=== PATIENT | female | born 1975 | race African-American/Black ===

== ENCOUNTER 2020-05-25 02:48 | Inpatient (IN) | payer MEDICARE, MEDICAID ==
[~2020-05-25] VITALS: Ht 162.6 cm; Wt 99.8 kg
[2020-05-25] MEDS ORDERED: ONDANSETRON HCL 4MG/2ML INJ IV STA (03:03)
[2020-05-25] MEDS ORDERED: MORPHINE SULFATE 4 MG/ML CPJ (NOT FOR IM USE) IV STA (03:03)
[2020-05-25 03:27] LABS: BASOPHILS % 0.6 % (0.0-2.0); EOSINOPHILS % 3.6 % (0.0-5.0); HEMATOCRIT. 34.5 % (36.0-48.0); HEMOGLOBIN. 11.1 g/dL (12.0-16.0); MEAN CORPUSCULAR HEMOGLOBIN 27.6 pg (28.0-32.0); MEAN PLATELET VOLUME 7.2 fl (7.4-10.4); MONOCYTES % 7.6 % (2.0-8.0); NEUTROPHILS % 78.2 % (40.0-76.0); PLATELET 334 x1000/uL (130-400); RED BLOOD CELL COUNT 4.01 mill/uL (4.2-5.4); RED CELL DISTRIBUTION WIDTH 16.8 % (11.6-14.6)
[2020-05-25 03:29] LABS: CHLORIDE 92 mEq/L (98-107)
[2020-05-25] MEDS ORDERED: DIPHENHYDRAMINE 50MG/ML VIAL IV ONE (04:15)
[2020-05-25] MEDS ORDERED: MORPHINE SULFATE 2 MG/ML CPJ (NOT FOR IM USE) IV PRN (09:00)
[2020-05-25 12:00] VITALS: BP 121/70
[2020-05-25] MEDS ORDERED: HYDRALAZINE 20MG/ML VIAL IV PRN (12:15)
[2020-05-25] MEDS ORDERED: CLONIDINE 0.1MG TABLET PO PRN (12:15)
[2020-05-25] MEDS ORDERED: MAGNESIUM/ALUMINUM HYDROXIDE/SIMETHICONE 30ML UDC PO PRN (12:15)
[2020-05-25] MEDS ORDERED: DEXTROSE 50% WATER 50ML SYRINGE IV PRN (12:15)
[2020-05-25] MEDS ORDERED: GUAIFENESIN 200MG/10ML SUGAR FREE UDC PO PRN (12:15)
[2020-05-25] MEDS ORDERED: IPRATROPIUM/ALBUTEROL 0.5-3(2.5)MG/3ML NEB NEB PRN (12:15)
[2020-05-25] MEDS ORDERED: ONDANSETRON HCL 4MG/2ML INJ IV PRN (12:15)
[2020-05-25] MEDS ORDERED: DOCUSATE SODIUM 100MG CAPSULE PO PRN (12:15)
[2020-05-25] MEDS ORDERED: ACETAMINOPHEN 325MG TABLET PO PRN (12:15)
[2020-05-25] MEDS: INSULIN LISPRO 100 UNITS/ML SUBCUT SCH ×4 (12:40→20:18)
[2020-05-25] MEDS: ENOXAPARIN 40MG/0.4ML SYR SUBCUT SCH ×2 (13:00→13:20)
[2020-05-25] MEDS ORDERED: METO-396 MT (13:09)
[2020-05-25] MEDS ORDERED: PROT20 MT (13:11)
[2020-05-25] MEDS ORDERED: FOLI0.8T42 MT (13:11)
[2020-05-25] MEDS ORDERED: CLOP-31 MT (13:11)
[2020-05-25] MEDS ORDERED: ASPI-1497 MT (13:11)
[2020-05-25] MEDS ORDERED: HYDR4TAB4 MT (13:12)
[2020-05-25] MEDS ORDERED: B50 MT (13:12)
[2020-05-25] MEDS ORDERED: CALC667T6 MT (13:13)
[2020-05-25] MEDS: DIPHENHYDRAMINE 50MG/ML VIAL IV PRN ×2 (13:20→20:18)
[2020-05-25] MEDS: SODIUM CHLORIDE 0.9% INJ 3ML FLUSH IVF SCH ×2 (13:21→20:26)
[2020-05-25] MEDS: LISINOPRIL 2.5MG TABLET PO SCH (13:45)
[2020-05-25] MEDS: HYDROMORPHONE HCL/PF 2MG/ML CPJ IV PRN ×2 (14:11→20:27)
[2020-05-25] MEDS: LORAZEPAM 2MG/ML CPJ IV PRN (16:48)
[2020-05-25] MEDS: BLOOD SUGAR DIAGNOSTIC STRIP TEST SCH ×2 (17:10→20:26)
[2020-05-25 20:00] VITALS: BP 134/76
[2020-05-25] MEDS: CARVEDILOL 3.125 MG TABLET PO SCH (20:19)
[2020-05-25] MEDS: ATORVASTATIN CALCIUM 10MG TABLET PO SCH (20:19)
[2020-05-26] VITALS: BP 139/85
[2020-05-26] MEDS: DIPHENHYDRAMINE 50MG/ML VIAL IV PRN ×4 (02:30→22:08)
[2020-05-26] MEDS: HYDROMORPHONE HCL/PF 2MG/ML CPJ IV PRN ×4 (02:30→22:08)
[2020-05-26 04:00] VITALS: BP 114/91
[2020-05-26] MEDS: LORAZEPAM 2MG/ML CPJ IV PRN ×3 (04:09→20:06)
[2020-05-26] MEDS: SODIUM CHLORIDE 0.9% INJ 3ML FLUSH IVF SCH ×3 (05:31→21:25)
[2020-05-26] MEDS: BLOOD SUGAR DIAGNOSTIC STRIP TEST SCH ×4 (07:20→21:25)
[2020-05-26] MEDS: INSULIN LISPRO 100 UNITS/ML SUBCUT SCH ×4 (07:20→21:20)
[2020-05-26 08:23] VITALS: BP 156/78
[2020-05-26] MEDS: ASPIRIN 81MG TABLET PO SCH (08:41)
[2020-05-26] MEDS: LISINOPRIL 2.5MG TABLET PO SCH (08:41)
[2020-05-26] MEDS: CARVEDILOL 3.125 MG TABLET PO SCH ×2 (08:43→21:19)
[2020-05-26 11:28] LABS: BASOPHILS % 0.6 % (0.0-2.0); EOSINOPHILS % 3.2 % (0.0-5.0); HEMATOCRIT. 33.1 % (36.0-48.0); HEMOGLOBIN. 10.6 g/dL (12.0-16.0); LYMPHOCYTES % 9.7 % (20.0-50.0); MEAN CORPUSCULAR HEMOGLOBIN 27.6 pg (28.0-32.0); MEAN CORPUSCULAR VOLUME 86.2 fL (81.0-99.0); MEAN PLATELET VOLUME 7.4 fl (7.4-10.4); MONOCYTES % 6.7 % (2.0-8.0); NEUTROPHILS % 79.8 % (40.0-76.0); PLATELET 361 x1000/uL (130-400); RED BLOOD CELL COUNT 3.84 mill/uL (4.2-5.4)
[2020-05-26 11:41] LABS: CHLORIDE 93 mEq/L (98-107)
[2020-05-26 11:47] LABS: LDL CHOLESTEROL 113 mg/dL (5-100)
[2020-05-26 11:49] LABS: CREATINE KINASE 81 IU/L (26-192); CREATINE KINASE MB FRACTION 2.6 ng/mL (0.5-3.6); HDL CHOLESTEROL 59 mg/dL (40-59)
[2020-05-26 12:14] VITALS: BP 120/45
[2020-05-26] MEDS: ENOXAPARIN 40MG/0.4ML SYR SUBCUT SCH (13:00)
[2020-05-26 16:26] VITALS: BP 142/82
[2020-05-26 20:00] VITALS: BP 152/126
[2020-05-26] MEDS: ATORVASTATIN CALCIUM 10MG TABLET PO SCH (21:19)
[2020-05-27] VITALS (7 sets, daily range): BP systolic 94–168; BP diastolic 47–131
[2020-05-27] MEDS: HYDROMORPHONE HCL/PF 2MG/ML CPJ IV PRN ×3 (04:15→17:28)
[2020-05-27] MEDS: DIPHENHYDRAMINE 50MG/ML VIAL IV PRN ×2 (04:16→11:23)
[2020-05-27] MEDS: LORAZEPAM 2MG/ML CPJ IV PRN ×3 (05:53→16:03)
[2020-05-27] MEDS: INSULIN LISPRO 100 UNITS/ML SUBCUT SCH ×3 (06:08→17:29)
[2020-05-27] MEDS: BLOOD SUGAR DIAGNOSTIC STRIP TEST SCH ×3 (06:09→17:27)
[2020-05-27] MEDS: SODIUM CHLORIDE 0.9% INJ 3ML FLUSH IVF SCH ×2 (06:09→13:23)
[2020-05-27 07:44] LABS: BASOPHILS % 0.5 % (0.0-2.0); EOSINOPHILS % 3.6 % (0.0-5.0); HEMATOCRIT. 31.1 % (36.0-48.0); HEMOGLOBIN. 10.1 g/dL (12.0-16.0); MEAN CORPUSCULAR VOLUME 85.8 fL (81.0-99.0); MEAN PLATELET VOLUME 7.7 fl (7.4-10.4); MONOCYTES % 8.5 % (2.0-8.0); NEUTROPHILS % 74.4 % (40.0-76.0); PLATELET 337 x1000/uL (130-400); RED BLOOD CELL COUNT 3.62 mill/uL (4.2-5.4); RED CELL DISTRIBUTION WIDTH 16.7 % (11.6-14.6)
[2020-05-27] MEDS: ASPIRIN 81MG TABLET PO SCH (08:45)
[2020-05-27] MEDS: CARVEDILOL 3.125 MG TABLET PO SCH (08:47)
[2020-05-27] MEDS: LISINOPRIL 2.5MG TABLET PO SCH (08:47)
[2020-05-27] MEDS: ENOXAPARIN 40MG/0.4ML SYR SUBCUT SCH ×2 (13:00→13:23)
== END 2020-05-27 19:35 | disposition home or self-care (01) | DRG 311 ==
LOC: ER 02:48 → 8WST 05:32
PROVIDERS: ADMIT Internal Medicine; ATTEND Internal Medicine
PROC: 5A1D70Z Performance of Urinary Filtration, Intermittent, Less than 6 Hours Per Day (ICD-10-PCS; principal; 2020-05-25)
DX: I24.8 Other forms of acute ischemic heart disease (principal); N18.6 End stage renal disease; I50.21 Acute systolic (congestive) heart failure; I13.2 Hypertensive heart and chronic kidney disease with heart failure and with stage 5 chronic kidney disease, or end stage renal disease; J84.9 Interstitial pulmonary disease, unspecified; J98.11 Atelectasis; D63.8 Anemia in other chronic diseases classified elsewhere; E11.22 Type 2 diabetes mellitus with diabetic chronic kidney disease; E11.319 Type 2 diabetes mellitus with unspecified diabetic retinopathy without macular edema; E11.51 Type 2 diabetes mellitus with diabetic peripheral angiopathy without gangrene; E78.5 Hyperlipidemia, unspecified; E87.5 Hyperkalemia; G89.4 Chronic pain syndrome; Z89.511 Acquired absence of right leg below knee; Z89.612 Acquired absence of left leg above knee; Z99.2 Dependence on renal dialysis; Z79.899 Other long term (current) drug therapy; H54.7 Unspecified visual loss
CPT/HCPCS: 36415; 71045; 80048; 80053; 80061; 82550; 82553; 82962; 83735; 83880; 84484; 85025; 93005; 93306; 99291; C1893; J1170; J1200; J1650; J1815; J2060; J2270; J2405

== ENCOUNTER 2020-06-16 23:51 | Inpatient (IN) | payer MEDICARE, MEDICAID ==
[~2020-06-16] VITALS: Ht 121.9 cm; Wt 93.2 kg
[~2020-06-16 23:51] MED LIST: ASPI-1497 MT; B50 MT; CALC667T6 MT; CLOP-31 MT; FOLI0.8T42 MT; HYDR4TAB4 MT; METO-396 MT; PROT20 MT
[2020-06-17] MEDS ORDERED: ONDANSETRON HCL 4MG/2ML INJ IV STA (00:54)
[2020-06-17] MEDS ORDERED: MORPHINE SULFATE 4 MG/ML CPJ (NOT FOR IM USE) IV STA (00:54)
[2020-06-17 01:12] LABS: CHLORIDE 94 mEq/L (98-107)
[2020-06-17 01:13] LABS: BASOPHILS % 0.5 % (0.0-2.0); EOSINOPHILS % 2.4 % (0.0-5.0); HEMATOCRIT. 28.6 % (36.0-48.0); HEMOGLOBIN. 9.4 g/dL (12.0-16.0); LYMPHOCYTES % 10.1 % (20.0-50.0); MEAN CORPUSCULAR HEMOGLOBIN 28.2 pg (28.0-32.0); MEAN PLATELET VOLUME 7.6 fl (7.4-10.4); MONOCYTES % 7.1 % (2.0-8.0); NEUTROPHILS % 79.9 % (40.0-76.0); PLATELET 361 x1000/uL (130-400); RED BLOOD CELL COUNT 3.33 mill/uL (4.2-5.4); RED CELL DISTRIBUTION WIDTH 16.8 % (11.6-14.6)
[2020-06-17 01:19] LABS: HCG SCREEN NEGATIVE
[2020-06-17] MEDS ORDERED: DIPHENHYDRAMINE 50MG/ML VIAL IV ONE (03:00)
[2020-06-17] MEDS ORDERED: MORPHINE SULFATE 2 MG/ML CPJ (NOT FOR IM USE) IV PRN ×2 (07:15→21:45)
[2020-06-17] MEDS ORDERED: HYDROCODONE/ACETAMINOPHEN 10/325MG TABLET PO PRN (08:15)
[2020-06-17] MEDS ORDERED: ONDANSETRON HCL 4MG/2ML INJ IV PRN (08:15)
[2020-06-17] MEDS ORDERED: OXYCODONE HCL 5MG TABLET PO PRN (08:45)
[2020-06-17] MEDS ORDERED: VANCOMYCIN 1 G PREMIX 200 ML IV SCH (09:00)
[2020-06-17] MEDS: LEVOFLOXACIN 500MG PREMIX 100 ML IV SCH (09:00)
[2020-06-17 10:00] VITALS: BP 144/73
[2020-06-17] MEDS ORDERED: ALBUMIN HUMAN 12.5GM/50ML (25%) IV NR (11:45)
[2020-06-17 11:52] VITALS: BP 101/60
[2020-06-17] MEDS ORDERED: DIPHENHYDRAMINE 50MG/ML VIAL IV NR ×2 (12:00→13:30)
[2020-06-17] MEDS ORDERED: DIPHENHYDRAMINE 25MG CAPSULE PO PRN (12:00)
[2020-06-17] MEDS ORDERED: HYDROMORPHONE HCL/PF 2MG/ML CPJ IV PRN (12:15)
[2020-06-17] MEDS ORDERED: HYDROMORPHONE HCL 2MG TABLET PO PRN (12:45)
[2020-06-17] MEDS ORDERED: ENOXAPARIN 40MG/0.4ML SYR SUBCUT SCH (15:00)
[2020-06-17] MEDS ORDERED: VANCOMYCIN 1500MG in DEXTROSE 5% WATER 250ML IV SCH (16:30)
[2020-06-17 16:34] VITALS: BP 128/64
[2020-06-17] MEDS ORDERED: INFLUENZA VACCINE 05/PF 0.5 ML VIAL IM ONE (18:00)
[2020-06-17 20:00] VITALS: BP 102/34
[2020-06-17] MEDS ORDERED: DEXTROSE 50% WATER 50ML SYRINGE IV PRN (21:45)
[2020-06-17] MEDS ORDERED: LORAZEPAM 2MG/ML CPJ IV PRN (21:45)
[2020-06-17 22:49] VITALS: BP 166/83
[2020-06-17] MEDS ORDERED: INSULIN GLARGINE UD 100 UNITS/ML SYR SUBCUT SCH (23:00)
[2020-06-18] VITALS: BP 166/83
[2020-06-18] MEDS ORDERED: BLOOD SUGAR DIAGNOSTIC STRIP TEST SCH (07:20)
[2020-06-18] MEDS ORDERED: INSULIN LISPRO 100 UNITS/ML SUBCUT SCH (07:50)
[2020-06-19] MEDS ORDERED: LEVOFLOXACIN 250MG PREMIX 50 ML IV SCH (09:00)
== END 2020-06-18 05:31 | disposition left against medical advice (07) | DRG 564 ==
LOC: ER 23:51 → ENRESERV 06-17 08:19 → 6WST 06-17 10:20
PROVIDERS: ADMIT Internal Medicine; ATTEND Internal Medicine
PROC: 5A1D70Z Performance of Urinary Filtration, Intermittent, Less than 6 Hours Per Day (ICD-10-PCS; principal; 2020-06-18)
DX: T87.43 Infection of amputation stump, right lower extremity (principal); N18.6 End stage renal disease; E44.0 Moderate protein-calorie malnutrition; E87.1 Hypo-osmolality and hyponatremia; I13.2 Hypertensive heart and chronic kidney disease with heart failure and with stage 5 chronic kidney disease, or end stage renal disease; Z68.44 Body mass index [BMI] 60.0-69.9, adult; D63.8 Anemia in other chronic diseases classified elsewhere; E11.22 Type 2 diabetes mellitus with diabetic chronic kidney disease; E11.319 Type 2 diabetes mellitus with unspecified diabetic retinopathy without macular edema; E11.51 Type 2 diabetes mellitus with diabetic peripheral angiopathy without gangrene; E87.5 Hyperkalemia; Y82.8 Other medical devices associated with adverse incidents; Y83.8 Other surgical procedures as the cause of abnormal reaction of the patient, or of later complication, without mention of misadventure at the time of the procedure; E87.6 Hypokalemia; E87.8 Other disorders of electrolyte and fluid balance, not elsewhere classified; G89.4 Chronic pain syndrome; I50.9 Heart failure, unspecified; Z89.511 Acquired absence of right leg below knee; Z89.512 Acquired absence of left leg below knee; Z89.612 Acquired absence of left leg above knee; Z99.2 Dependence on renal dialysis; Z79.899 Other long term (current) drug therapy
CPT/HCPCS: 36415; 71045; 80053; 82962; 83036; 83605; 84145; 84484; 84703; 85025; 93005; 93970; 99285; J1200; J1815; J2060; J2270; J2405; J3370; J7060; P9047; Q0163

== ENCOUNTER 2020-11-21 08:39 | Emergency (ER) | payer MEDICARE, MEDICAID ==
[~2020-11-21] VITALS: Ht 160 cm; Wt 94.0 kg
[~2020-11-21 08:39] MED LIST changes: -CLOP-31 MT; +CLOP75TA4 MT
[2020-11-21 09:50] LABS: BASOPHILS % 0.4 % (0.0-2.0); EOSINOPHILS % 2.8 % (0.0-5.0); HEMATOCRIT. 26.9 % (36.0-48.0); LYMPHOCYTES % 8.4 % (20.0-50.0); MEAN CORPUSCULAR HEMOGLOBIN 25.4 pg (28.0-32.0); MEAN CORPUSCULAR VOLUME 85.4 fL (81.0-99.0); MEAN PLATELET VOLUME 6.4 fl (7.4-10.4); MONOCYTES % 6.3 % (2.0-8.0); NEUTROPHILS % 82.1 % (40.0-76.0); PLATELET 690 x1000/uL (130-400); RED BLOOD CELL COUNT 3.15 mill/uL (4.2-5.4); RED CELL DISTRIBUTION WIDTH 18.5 % (11.6-14.6)
[2020-11-21 09:58] LABS: CHLORIDE 100 mEq/L (98-107)
[2020-11-21 10:00] LABS: INR 1.1; PROTHROMBIN TIME 11.4 sec (9.6-11.0)
[2020-11-21 10:09] LABS: HCG SCREEN NEGATIVE
[2020-11-21] MEDS ORDERED: AZTREONAM 1 G in DEXTROSE 5% WATER 50 ML IV SCH (10:45)
[2020-11-21] MEDS ORDERED: VANCOMYCIN 1 G PREMIX 200 ML IV SCH (11:00)
[2020-11-21] MEDS ORDERED: HYDROMORPHONE HCL 4MG TABLET PO SCH (11:00)
[2020-11-21 11:13] VITALS: BP 143/62
[2020-11-21] MEDS ORDERED: AZTREONAM 1G in DEXTROSE 5% WATER 50ML IV SCH (12:00)
== END 2020-11-21 12:58 | disposition left against medical advice (07) ==
LOC: ER 08:50 → EDBEDREQTM 10:48 → EDBEDREQ 10:48 → EDBEDREQSVC 10:48 → CANBEDREQ 12:55 → ER 12:58
DX: D72.829 Elevated white blood cell count, unspecified (principal); E11.22 Type 2 diabetes mellitus with diabetic chronic kidney disease; N18.6 End stage renal disease; I50.9 Heart failure, unspecified; Z13.9 Encounter for screening, unspecified; Z53.29 Procedure and treatment not carried out because of patient's decision for other reasons; Z88.0 Allergy status to penicillin; Z88.6 Allergy status to analgesic agent; Z88.5 Allergy status to narcotic agent; Z88.8 Allergy status to other drugs, medicaments and biological substances; Z88.2 Allergy status to sulfonamides; Z91.013 Allergy to seafood; Z88.1 Allergy status to other antibiotic agents; Z79.899 Other long term (current) drug therapy; Z98.890 Other specified postprocedural states; Z90.710 Acquired absence of both cervix and uterus
CPT/HCPCS: 36415; 71045; 80053; 84145; 84484; 84703; 85025; 93005; 99285; J3490; J7060